=== PATIENT | female | born 1995 | race Caucasian/White ===

== ENCOUNTER 2018-01-07 11:31 | Observation (INO) | payer OTHER ==
--- NOTE | 2018-01-07 12:07 | CT ---
CT HEAD NONCONTRAST: Date: 01/07/18 INDICATION: Emergency exam. Left side weakness. FINDINGS: There is no acute intracranial hemorrhage, mass effect, or midline shift. IMPRESSION: No acute intracranial abnormalities. POS: TPC
[2018-01-07 12:14] LABS: #Eosinphils 0.1 thou/uL (0.0-0.7); #Lymphocytes 2.7 thou/uL (1.20-3.40); #Monocytes 0.3 thou/uL (0.11-0.59); #Neutrophils 2.8 thou/uL (1.40-6.50); %Basophils 0.6 % (0.0-1.0); %Eosinophils 1.5 % (0.0-10.0); %Lymphocytes 45.2 % (21.0-51.0); %Monocytes 5.9 % (0.0-10.0); %Neutrophils 46.9 % (42.0-75.0); Hemoglobin 12.6 g/dL (12.0-16.0); Mean Corpuscular HGB CONC 31.1 g/dL (32.0-36.0); Mean Corpuscular Hemoglobin 25.8 pg (27.0-31.0); Mean Platelet Volume 7.2 fL (7.4-10.4); Platelet Count 228 thou/uL (130-400); RBC Distribution Width 15.4 % (11.5-14.5); Red Blood Cell (RBC) Count 4.88 mill/uL (4.20-5.40); White Blood Cell (WBC) Count 5.9 thou/uL (4.8-10.8)
[2018-01-07 12:30] LABS: PTT 29.9 SEC (22.9-36.1); Prothrombin Time 13.1 SEC (12.0-14.7)
[2018-01-07 12:31] LABS: ALT (SGPT) 26 U/L (8-55); AST (SGOT) 23 U/L (5-34); Albumin 4.2 g/dL (3.5-5.0); Alkaline Phosphatase 146 U/L (40-150); Anion Gap 12 mmol/L (10-20); BUN (Urea Nitrogen) 11 mg/dL (7.0-18.7); Bilirubin, Total 1.2 mg/dL (0.2-1.2); Calc. Creatinine Clearance 0 mL/min (70-130); Calcium 9.4 mg/dL (7.8-10.44); Carbon Dioxide 25 mmol/L (22-29); Chloride 107 mmol/L (98-107); Estimated GFR-MDRD Greater than 90; Globulin 3.2 g/dL (2.4-3.5); Glucose 83 mg/dL (70-105); Potassium 4.3 mmol/L (3.5-5.1); Protein, Total 7.4 g/dL (6.0-8.3); Sodium 140 mmol/L (136-145)
--- NOTE | 2018-01-07 16:09 | HP ---
PRIMARY CARE PHYSICIAN: [facility] Call Admission. REASON FOR ADMISSION: TIA. HISTORY OF PRESENT ILLNESS: A 22-year-old female with no significant medical history, who is 1-week . She had vaginal delivery on December 31. She came to emergency room for acute onset of left upper and lower extremity weakness. The patient was also having associated slurred speech, and she also noticed a facial droop. This was also witnessed by other family members. The patient was not able to blink her eye on the left side and she was feeling numbness on her left side of face as well as upper and lower extremity. This symptom lasted for about 10 minutes and that is why she was scared and decided to come to the emergency room for evaluation. When she came to emergency room, all symptoms resolved including her speech improved and paresthesia completely resolved. She was up to her normal. In emergency room, she had routine blood tests that were normal. CT brain was negative. ER physician decided to keep this patient in hospital for observation to rule out stroke. When I saw this patient, at that time, the patient was completely asymptomatic. REVIEW OF SYSTEMS: All review of system tried to review with the patient, but negative except as mentioned in HPI. CONSTITUTIONAL: Negative for weight loss or gain, ability to conduct usual activities. SKIN: Negative for rash, itching. EYES: Negative for double vision, pain. ENT/MOUTH: Negative for nose bleeding, neck stiffness, pain, tenderness. CARDIOVASCULAR: Negative for palpitations, dyspnea on exertion, orthopnea. RESPIRATORY: Negative for shortness of breath, wheezing, cough, hemoptysis, fever or night sweats. GASTROINTESTINAL: Negative for poor appetite, abdominal pain, heartburn, nausea, vomiting, constipation, or diarrhea. GENITOURINARY: Negative for urgency, frequency, dysuria, nocturia. MUSCULOSKELETAL: Negative for pain, swelling. NEUROLOGIC/PSYCHIATRIC: Negative for anxiety, depression. ALLERGY/IMMUNOLOGIC: Negative for skin rash, bleeding tendency. PAST MEDICAL HISTORY: Reviewed and negative. PAST SURGICAL HISTORY: Reviewed and negative. PAST PSYCHIATRIC HISTORY: Reviewed and negative. SOCIAL HISTORY: No history of tobacco, alcohol, or illicit drug abuse. FAMILY HISTORY: No family history of coronary artery disease, stroke, or cancer. ALLERGIES: NO KNOWN DRUG ALLERGIES. CURRENT HOME MEDICATIONS: 1. Motrin 400 mg as needed basis. 2. vitamin 1 tablet daily. 3. Iron 1 tablet daily. 4. Excedrin Migraine as needed basis. EMERGENCY ROOM COURSE: Reviewed. PHYSICAL EXAMINATION: VITAL SIGNS: On arrival, blood pressure 123/86, pulse 84, respiratory rate 19, temperature 98.0, and saturation 100% on room air. Weight 81.6 kg. GENERAL: The patient is currently alert, awake. No obvious acute distress. HEENT: Head; normocephalic, atraumatic. Eyes; pupils are round and reactive to light. Extraocular muscle intact. ENT; oropharynx within normal limits. Moist mucous membrane. No oral lesion. No pharyngeal erythema. No exudate. NECK: Supple. No JVD. No thyromegaly. No carotid bruit. No jugular venous distention. LUNGS: Clear to auscultation without any rhonchi or rales. CARDIAC: S1 and S2, regular. No murmur. No gallop. No rub. ABDOMEN: Soft. Bowel sounds present. Nontender. Nondistended. No organomegaly. No mass. No suprapubic tenderness. BACK: Unremarkable. No CVA tenderness. EXTREMITIES: Upper extremity; passive movement of all joints are normal. Lower extremity; no edema. Good distal pulsation. SKIN: No skin rash. HEMATOLOGICAL SYSTEM: No lymphadenopathy. PSYCHIATRIC: Normal affect. NEUROLOGIC: Nonfocal examination. LABORATORY DATA: Significant labs; CBC; WBC 5.9, hemoglobin 12.6, and platelet 228. INR 1.0. BMP; sodium 140, potassium 4.3, chloride 107, carbon dioxide 25, anion gap of 12, BUN 11, creatinine 0.76, glucose 83, calcium 9.4. LFT: AST 23, ALT 26, alkaline phosphatase 146, and albumin 4.2. case monitor showing normal sinus rhythm. ASSESSMENT AND PLAN: 1. Acute paresthesia, weakness of left upper, lower extremity as well as associated slurred speech and facial droop concerning for transient ischemic attack, symptoms resolved within 5 minutes. At this point, the patient is status. She does not have any other risk factors. Her CT brain is negative and her current examination is completely normal. Her EKG and cardiac examination is normal. At this point, we will keep this patient in hospital for observation. Neuro check every four hourly, and we will obtain MRI brain for further evaluation. If MRI brain is normal, then we will consider discharging her home. We will also do carotid Doppler and echocardiography as a part of transient ischemic attack workup. We will check lipid profile for risk stratification. 2. status. The patient will continue multivitamins while in hospital. 3. Deep vein thrombosis prophylaxis not needed because we are expecting discharge in 24 hours. 4. Gastrointestinal prophylaxis, Pepcid 20 mg p.o. b.i.d. 5. Code status: The patient is full code. 6. Disposition plan based on clinical course. Plan of care discussed with the patient in detail. Job ID: [id number]
[2018-01-07] MEDS ORDERED: Ondansetron PF 4 MG/2 ML Vial IVP PRN ×2 (16:16→16:41)
[2018-01-07] MEDS ORDERED: Ondansetron ODT 4 MG TAB SL PRN (16:16)
[2018-01-07] MEDS ORDERED: Artificial Tears 18 DROP/0.9 ML EA EYE PRN (16:41)
[2018-01-07] MEDS ORDERED: Loperamide HCl 2 MG CAP PO PRN (16:41)
[2018-01-07] MEDS ORDERED: Bisacodyl 10 MG SUPP PR PRN (16:41)
[2018-01-07] MEDS ORDERED: Calcium Carbonate 500 MG ChewTAB PO PRN (16:41)
[2018-01-07] MEDS ORDERED: Ondansetron ODT 4 MG TAB PO PRN (16:41)
[2018-01-07] MEDS ORDERED: Diabetic Tussin 200 MG/10 ML UDCUP PO PRN (16:41)
[2018-01-07] MEDS ORDERED: hydrALAZINE 20 MG/ML VIAL SLOW IVP PRN (16:41)
[2018-01-07] MEDS ORDERED: Cepastat Lozenges 1 LOZ PO PRN (16:41)
[2018-01-07] MEDS ORDERED: Bisacodyl 5 MG TAB PO PRN (16:41)
[2018-01-07] MEDS ORDERED: Senokot S 8.6-50 MG TAB PO PRN (16:41)
[2018-01-07] MEDS ORDERED: Zolpidem Tartrate 5 MG TAB PO PRN (16:41)
[2018-01-07] MEDS ORDERED: Loratadine 10 MG TAB PO PRN (16:41)
[2018-01-07] MEDS ORDERED: Sodium Chloride 0.65% Nasal 44 ML BOT EA NARE PRN (16:41)
[2018-01-07] MEDS ORDERED: Acetaminophen 325 MG TAB PO PRN (16:41)
[2018-01-07] MEDS ORDERED: Eucerin (Mineral Oil/Petrolatum,White) 30 gm Jar TOP PRN (16:41)
[2018-01-07 18:07] VITALS: BMI 30.1
--- NOTE | 2018-01-07 18:34 | MRI ---
MRI BRAIN NONCONTRAST: Date: 01/07/18 Time: 1720 hours HISTORY: 22-year-old female with TIA. Dysarthria, left upper extremity, hand, and facial numbness. FINDINGS: The ventricles are normal in size and configuration. There is no major intraaxial signal abnormality , restricted diffusion, midline shift or any other mass effect, recent intraaxial hemorrhage, or extr aaxial fluid collection. There is evidence of thrombosis of one of the superficial veins over the right cerebral convexity, th e upper portion of what is probably the vein of Trolard (magnetic susceptibility blooming artifact on T2* gradient echo, T1 hyperintensity, and loss of the normal flow signal void on T2 WI). This is not yet associated with a venous infarction. There is no evidence of thrombosis of the dural venous sinu ses yet, including the superior sagittal sinus. IMPRESSION: 1. 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 2. The brain is currently normal. CODE TRoger jn[] POS: DELROY
[2018-01-07] MEDS: Famotidine 20 MG TAB PO SCH (20:30)
[2018-01-07] MEDS ORDERED: Enoxaparin Sodium 40 MG/0.4 ML SYRINGE SC SCH (21:00)
[2018-01-08 07:46] LABS: Cardiac Risk 3.7 (Less than 4.5)
[2018-01-08] MEDS ORDERED: Ferrous Sulfate 325 MG TAB PO SCH (09:00)
[2018-01-08] MEDS ORDERED: Aspirin 81 mg Enteric Coated Tablet PO SCH (09:00)
[2018-01-08] MEDS ORDERED: Prenatal Vitamin 1 TAB PO SCH (09:00)
[2018-01-08] MEDS: Famotidine 20 MG TAB PO SCH (09:03)
--- NOTE | 2018-01-08 11:30 | PDOC.PN ---
- Subjective Encounter Start Date: 01/08/18 Encounter Start Time: 07:20 Patient seen and examined. No new complaints. No overnight events - Objective Resuscitation Status - Order Detail: 01/07/18 14:34 Resuscitation Status Routine Resuscitation Status: FULL: Full Resuscitation MAR Reviewed: Yes Vital Signs & Weight: Vital Signs (12 hours) Temp Pulse Resp BP Pulse Ox 01/08/18 08:00 98.5 F 76 16 125/87 98 01/08/18 04:00 98.0 F 84 18 120/81 94 L 01/07/18 23:58 98.3 F 88 18 122/84 94 L Weight Weight 175 lb 9.6 oz I&O: 01/07/18 01/08/18 01/09/18 06:59 06:59 06:59 Intake Total 360 Balance 360 Result Diagrams: 01/07/18 11:50 01/07/18 11:50 Radiology Reviewed by me: Yes (MRI brain reviewed) EKG Reviewed by me: Yes (nsr) Phys Exam - Physical Examination Constitutional: NAD HEENT: PERRLA, moist MMs, sclera anicteric Neck: no JVD, supple Respiratory: no wheezing, no rales, no rhonchi Cardiovascular: RRR, no significant murmur, no rub Gastrointestinal: soft, non-tender, no distention, positive bowel sounds Musculoskeletal: no edema, pulses present Neurological: non-focal, normal sensation, moves all 4 limbs Lymphatic: no nodes Psychiatric: normal affect, A&O x 3 Skin: no rash, normal turgor Dx/Plan (1) TIA (transient ischemic attack) Code(s): G45.9 - TRANSIENT CEREBRAL ISCHEMIC ATTACK, UNSPECIFIED Status: Acute (2) Obesity (BMI 30.0-34.9) Code(s): E66.9 - OBESITY, UNSPECIFIED Status: Chronic - Plan cont current plan of care * today carotid US and echo * medication reviewed as below * symptomatic treatment * neurology consult pending. Review of Systems - Review of Systems ENT: negative: Ear Pain, Ear Discharge, Nose Pain, Nose Discharge, Nose Congestion, Mouth Pain, Mouth Swelling, Throat Pain, Throat Swelling, Other Respiratory: negative: Cough, Dry, Shortness of Breath, Hemoptysis, SOB with Excertion, Pleuritic Pain, Sputum, Wheezing Cardiovascular: negative: chest pain, palpitations, orthopnea, paroxysmal nocturnal dyspnea, edema, light headedness, other Gastrointestinal: negative: Nausea, Vomiting, Abdominal Pain, Diarrhea, Constipation, Melena, Hematochezia, Other Genitourinary: negative: Dysuria, Frequency, Incontinence, Hematuria, Retention , Other Musculoskeletal: negative: Neck Pain, Shoulder Pain, Arm Pain, Back Pain, Hand Pain, Leg Pain, Foot Pain, Other Skin: negative: Rash, Lesions, Naif, Bruising, Other - Medications/Allergies Allergies/Adverse Reactions: Allergies Allergy/AdvReac Type Severity Reaction Status Date / Time No Known Allergies Allergy Verified 12/25/17 18:22 Medications: Current Medications Acetaminophen (Tylenol) 650 mg PO Q4H PRN PRN Reason: Headache/Fever/Mild Pain (1-3) Last Admin: 01/08/18 06:10 Dose: 650 mg Artificial Tears (Tears Naturale) 2 drop EA EYE PRN PRN PRN Reason: Dry Eyes Aspirin (Ecotrin) 81 mg PO DAILY [facility] Last Admin: 01/08/18 09:03 Dose: 81 mg Bisacodyl (Dulcolax) 10 mg PO DAILYPRN PRN PRN Reason: Constipation Bisacodyl (Dulcolax) 10 mg [place] DAILYPRN PRN PRN Reason: Constipation Calcium Carbonate (Tums) 1,000 mg PO Q4H PRN PRN Reason: Heartburn or Indigestion Enoxaparin Sodium (Lovenox) 40 mg SC 2100 [facility] Last Admin: 01/07/18 20:26 Dose: 40 mg Famotidine (Pepcid) 20 mg PO BID [facility] Last Admin: 01/08/18 09:03 Dose: 20 mg Ferrous Sulfate (Feosol) 325 mg PO DAILY [facility] Last Admin: 01/08/18 09:03 Dose: 325 mg Guaifenesin (Robitussin Sf) 200 mg PO Q4H PRN PRN Reason: Cough Hydralazine HCl (Apresoline) 10 mg SLOW IVP Q4H PRN PRN Reason: SBP > 180 and HR < 70 Loperamide HCl (Imodium) 2 mg PO PRN PRN PRN Reason: Diarrhea/Loose Stools Loratadine (Claritin) 10 mg PO DAILYPRN PRN PRN Reason: Sinus Symptoms Mineral Oil/White Petrolatum (Eucerin Cream) 0 gm TOP BIDPRN PRN PRN Reason: Dry Skin Ondansetron HCl (Zofran Odt) 4 mg PO Q6H PRN PRN Reason: Nausea/Vomiting Ondansetron HCl (Zofran) 4 mg IVP Q6H PRN PRN Reason: Nausea/Vomiting Multivit/Folic Acid/Iron ( Vitamin) 2 tab PO DAILY [facility] Last Admin: 01/08/18 09:03 Dose: Not Given Senna/Docusate Sodium (Senokot S) 2 tab PO BID PRN PRN Reason: Constipation Sodium Chloride (Sevier Nasal Rudolph 0.65%) 0 ml EA NARE QIDPRN PRN PRN Reason: Nasal Congestion Sodium Chloride (Flush - Normal Saline) 10 ml IVF PRN PRN PRN Reason: Saline Flush Throat Lozenges (Cepastat Lozenges) 1 karla PO Q2H PRN PRN Reason: Sore Throat Zolpidem Tartrate (Ambien) 5 mg PO HSPRN PRN PRN Reason: Insomnia
--- NOTE | 2018-01-08 13:53 | ULT ---
CAROTID DOPPLER: 01/08/2018 PROVIDED CLINICAL HISTORY: TIA. TECHNIQUE: Rosales-scale and color Doppler sonography with spectral analysis was performed of the extracranial webb tid system bilaterally. FINDINGS: There is no significant atherosclerotic plaque identified. There is no evidence for hemodynamically significant internal carotid artery stenosis by peak systolic velocity or ratio criteria. Antegrade flow is seen in the vertebral arteries. IMPRESSION: No sonographic evidence for hemodynamically significant internal carotid artery stenosis. POS: C
[2018-01-08 15:45] VITALS: BP 125/80; TEMP 98
--- NOTE | 2018-01-08 16:06 | DIS ---
DATE OF ADMISSION: 01/07/2018 DATE OF DISCHARGE: 01/08/2018 DISCHARGE DISPOSITION: Home. PRIMARY DISCHARGE DIAGNOSES: Ruled out cerebrovascular accident and ruled out transient ischemic attack. SECONDARY DISCHARGE DIAGNOSES: Obesity, status. PRIMARY PROCEDURE/OPERATION: None. RADIOLOGICAL INVESTIGATION: MRI brain showed thrombosis of the right vein of Trolard. Brain is normal. Carotid Doppler negative for any stenosis. CT of brain negative for any acute process. Echocardiography pending. LABORATORY DATA: Significant labs; CBC, BMP, and LFT normal. LDL 108. INR 1.0. DISCHARGE MEDICATIONS: 1. Aspirin 81 mg p.o. daily. 2. Ferrous sulfate 325 mg p.o. daily. 3. vitamin 1 tablet p.o. daily. CONTRAINDICATION: The patient is not given statin therapy because the patient wanted to try diet and exercise first, then she will decide about statin therapy. CODE STATUS: Full code. INPATIENT MATERIALS INTERN: Dr. Parth Fontaine, neurologist is consulted while in hospital. TEST RESULTS PENDING ON DISCHARGE: None. ALLERGIES: NO KNOWN DRUG ALLERGIES. DISCHARGE PLAN: Posthospital, the patient is instructed to follow up with primary care physician. HOSPITAL COURSE: This is a 22-year-old female, who was experiencing left upper and lower extremity tingling, numbness, and weakness, as well as facial drooping and slurred speech that lasted for about 5 to 10 minutes, then subsided by itself. She was evaluated with a CT of brain, which was normal. MRI brain showed normal finding other than thrombosis of right vein of Trolard. Carotid Doppler was normal. Neurology is consulted. At this point, MRI finding of thrombosis of right vein of Trolard is insignificant. We are officially waiting from Neurology recommendations. She will continue all her previous medications. Healthy lifestyle measure discussed with the patient. She will continue aspirin 81 mg daily along with her home medication. The patient is seen and examined at bedside today. After Neurology evaluation, this patient will be discharged her home. Alex recommended by neurology and lipitor added, risk and benefit of these meds while breast feeding discussed with pt and she agreed to continue. Job ID: [id number] [facility]
[2018-01-08] MEDS ORDERED: Acetaminophen/Codeine 30-300mg Tablet PO PRN ×2 (17:22)
[2018-01-08] MEDS ORDERED: Apixaban 2.5 MG TAB PO SCH (21:00)
[2018-01-08] MEDS ORDERED: Famotidine 20 MG TAB PO SCH (21:00)
--- NOTE | 2018-01-09 00:55 | CON ---
DATE OF CONSULTATION: 01/08/2018 TYPE OF CONSULTATION: Neurology. CONSULTING PHYSICIAN: Hospitalist Service. 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 PLAN: 1. Eliquis 2.5 mg twice a day for the next 3 months. 2. Tylenol with Codeine as needed for pain. HISTORY OF PRESENT ILLNESS: Cassy is a 22-year-old young woman, who just had a baby about 13 days ago. Approximately, 5 days ago, she started experiencing a headache. She went to her primary care and had urinalysis and a routine lab work done, nothing remarkable was found. She had been using Excedrin at least twice a day to try to manage the pain. Yesterday, she experienced transient weakness of the left arm with associated numbness and slurred speech. This lasted less than 5 minutes. She was seen in the emergency room and admitted. Her MRI of the brain reveals a cortical vein that is thrombosed in the right posterior parietal region. She is still experiencing the headaches. She denies a family history of clotting disorder. She has not had any symptoms of lupus or blood clots in the past. She was on no medication other than some [id number] medications. PAST MEDICAL HISTORY: Otherwise negative. ALLERGIES: NONE REPORTED. SOCIAL HISTORY: No tobacco or alcohol use. FAMILY HISTORY: Unremarkable. REVIEW OF SYSTEMS: Otherwise negative for any focal neurologic symptoms. PHYSICAL EXAMINATION: GENERAL: She is a healthy-appearing young woman, in no distress. HEENT: Within normal limits. NECK: Supple. NEUROLOGIC: She is alert and appropriate. Her speech is fluent and clear. Exam is nonfocal. DIAGNOSTIC STUDIES: MRI images were reviewed. SUMMARY: This is a young woman, who is few days and has suffered a secondary cerebral venous occlusion. Fortunately, her symptoms are fairly mild. The headache should improve over the next 2 to 3 weeks. I would continue Eliquis for about 3 months. I would be happy to follow up with her as an outpatient. Job ID: [id number]
== END 2018-01-08 17:44 | disposition home or self-care (01) ==
LOC: ERS 11:31 → 2SE 16:05
PROVIDERS: ADMIT Internal Medicine; ATTEND Internal Medicine
DX: R47.81 Slurred speech (principal); R29.898 Other symptoms and signs involving the musculoskeletal system; R29.810 Facial weakness; R20.0 Anesthesia of skin; R20.2 Paresthesia of skin; I67.6 Nonpyogenic thrombosis of intracranial venous system; E66.9 Obesity, unspecified; Z68.30 Body mass index [BMI] 30.0-30.9, adult; Z79.899 Other long term (current) drug therapy
CPT/HCPCS: 36415; 70450; 70551; 80053; 80061; 85025; 85610; 85730; 93306; 93880; 96372; G0378; J1650

== ENCOUNTER 2022-12-11 09:53 | Outpatient (CLI) | payer OTHER | END 2022-12-11 09:54 | disposition home or self-care (01) | LOC: ULT 09:53 | PROVIDERS: ATTEND Nurse Practitioner Family | DX: R10.12 Left upper quadrant pain (principal); R16.1 Splenomegaly, not elsewhere classified | CPT/HCPCS: 76700 ==

== ENCOUNTER 2023-01-05 07:38 | Outpatient (CLI) | payer OTHER ==
[2023-01-05] MEDS ORDERED: Iopamidol 370 76% 100 ML VIAL ONE (13:29)
== END 2023-01-05 07:39 | disposition home or self-care (01) ==
LOC: BICCT 07:38
PROVIDERS: ATTEND Nurse Practitioner Family
DX: R16.1 Splenomegaly, not elsewhere classified (principal)
CPT/HCPCS: 74160; Q9967

== ENCOUNTER 2024-02-27 13:47 | Outpatient (CLI) | payer BC | END 2024-02-27 13:48 | disposition home or self-care (01) | LOC: BICULT 13:47 | PROVIDERS: ATTEND Physician Assistant | DX: N64.4 Mastodynia (principal) | CPT/HCPCS: 76642 ==